=== PATIENT | male | born 1960 | race Caucasian/White ===

== ENCOUNTER 2020-01-09 10:40 | Day surgery (SDC) | payer OTHER ==
[~2020-01-09] VITALS: Ht 190.5 cm; Wt 83.9 kg
[~2020-01-09 10:40] MED LIST: AZIT250 PO; CYCL10 PO; NAPR500 PO; Naprosyn500 MG PO; Percocet 5-3251 EACH PO
== END 2020-01-09 13:50 | disposition home or self-care (01) ==
LOC: ORSCSDS 10:40
PROVIDERS: Internal Medicine Gastroenterology
PROC: 0DBN8ZX Excision of Sigmoid Colon, Via Natural or Artificial Opening Endoscopic, Diagnostic (ICD-10-PCS; principal; 2020-01-09 12:15)
PROC: 0DB68ZX Excision of Stomach, Via Natural or Artificial Opening Endoscopic, Diagnostic (ICD-10-PCS; principal; 2020-01-09 12:15)
PROC: 0DBL8ZX Excision of Transverse Colon, Via Natural or Artificial Opening Endoscopic, Diagnostic (ICD-10-PCS; principal; 2020-01-09 12:15)
DX: K74.60 Unspecified cirrhosis of liver (principal); I85.00 Esophageal varices without bleeding; K76.6 Portal hypertension; K31.89 Other diseases of stomach and duodenum; K44.9 Diaphragmatic hernia without obstruction or gangrene; K29.50 Unspecified chronic gastritis without bleeding; D12.3 Benign neoplasm of transverse colon; D12.5 Benign neoplasm of sigmoid colon; K57.30 Diverticulosis of large intestine without perforation or abscess without bleeding; K64.8 Other hemorrhoids; Z13.810 Encounter for screening for upper gastrointestinal disorder; Z12.11 Encounter for screening for malignant neoplasm of colon; J44.9 Chronic obstructive pulmonary disease, unspecified; Z87.891 Personal history of nicotine dependence
CPT/HCPCS: 88305; 88342; J2704; J7120

== ENCOUNTER 2020-06-02 09:30 | Inpatient (IN) | payer OTHER ==
[~2020-06-02] VITALS: Ht 190.5 cm; Wt 104.3 kg
[2020-06-02 10:22] LABS: BASOPHILS ABSOLUTE AUTO 0.03 K/mm3 (0.00-0.23); BASOPHILS PERCENT AUTO 0 % (0-2); EOSINOPHILS ABSOLUTE AUTO 0.09 K/mm3 (0.00-0.68); EOSINOPHILS PERCENT AUTO 1 % (0-6); Hematocrit 32.5 % (37.0-53.0); Hemoglobin 9.5 g/dL (13.5-17.5); IMMATURE GRAN ABSOLUTE AUTO 0.25 K/mm3 (0.00-0.10); IMMATURE GRAN PERCENT AUTO 2 % (0-1); LYMPHOCYTES ABSOLUTE AUTO 1.99 K/mm3 (0.84-5.20); LYMPHOCYTES PERCENT AUTO 13 % (21-46); MONOCYTES PERCENT AUTO 9 % (4-13); Mean Corpuscular HGB 29.6 pg (26.0-34.0); Mean Corpuscular HGB Conc 29.2 g/dL (31.5-36.5); Mean Corpuscular Volume 101 fL (80-100); NEUTROPHILS ABSOLUTE AUTO 11.28 K/mm3 (1.96-9.15); NEUTROPHILS PERCENT AUTO 75 % (41-73); NRBC ABSOLUTE 0.07 K/mm3 (0.00-0.02); NRBC Auto 0.5 /100 WBC (0.0-0.2); Platelet Count 109 K/mm3 (150-400); RDW Coefficient Variation 15.2 % (11.7-14.2); RDW Standard Deviation 55.8 fL (35.1-46.3); Red Blood Cell Count 3.21 M/mm3 (4.30-5.90); White Blood Cell Count 15.04 K/mm3 (4.00-11.30)
[2020-06-02 10:39] LABS: Alanine Aminotransfer (ALT/SGP 17 U/L (12-78); Albumin, Blood 2.6 g/dL (3.4-5.0); Albumin/Globulin Ratio 0.8 (0.8-1.8); Alk Phos 30 U/L (50-136); Anion Gap 4 mmol/L (6-16); Aspartate Aminotrans (AST/SGOT 21 U/L (12-37); Bilirubin, Total 0.8 mg/dL (0.1-1.0); Blood Urea Nitrogen 135 mg/dL (8-24); Bun/Creatinine Ratio 116.4 (12.0-20.0); CO2, Blood 33 mmol/L (21-32); Calcium, Blood 7.3 mg/dL (8.5-10.1); Chloride, Blood 97 mmol/L (98-108); Creatinine, Blood 1.16 mg/dL (0.60-1.20); Globulin, Blood 3.3 g/dL (2.2-4.0); Glomerular Filtration Rate >60 (60-); Glucose, Blood 137 mg/dL (70-99); Potassium, Blood 6.3 mmol/L (3.5-5.5); Sodium, Blood 134 mmol/L (136-145); Total Protein, Blood 5.9 g/dL (6.4-8.2)
[2020-06-02 11:49] LABS: International Normalized Ratio 1.53
[2020-06-02 12:02] LABS: PCO2 Arterial 99 mmHg (35-45); PO2 Arterial 219 mmHg (80-100); pH Blood Arterial 7.21 (7.35-7.45)
[2020-06-02 12:07] LABS: Hematocrit 29.1 % (37.0-53.0); Hemoglobin 8.7 g/dL (13.5-17.5)
[2020-06-02 12:37] LABS: Anion Gap 2 mmol/L (6-16); Blood Urea Nitrogen 124 mg/dL (8-24); Bun/Creatinine Ratio 112.7 (12.0-20.0); CO2, Blood 38 mmol/L (21-32); Calcium, Blood 6.8 mg/dL (8.5-10.1); Chloride, Blood 98 mmol/L (98-108); Glomerular Filtration Rate >60 (60-); Glucose, Blood 135 mg/dL (70-99); Potassium, Blood 6.2 mmol/L (3.5-5.5); Sodium, Blood 138 mmol/L (136-145)
[2020-06-02] MEDS ORDERED: ALBU90OI INH (12:58)
[2020-06-02] MEDS ORDERED: QVAR REDIHALE10.6 G2 INH (12:58)
--- NOTE | 2020-06-02 14:40 | NUR ---
ASSUMED CARE: PT RESTING IN BED ON BIPAP, SKIN CEE, DIAPHORETIC, PT DOES NOT APPEAR TO HAVE CHEST MOVEMENT WITH BREATHING AND MINIMAL BREATH SOUNDS HEARD. SATURATIONS IN LOW 90S. SHAVED MOSQUERA IN ATTEMPT FOR BETTER SEAL ON BIPAP WITH LITTLE IMPROVEMENT. DUE TO THE SWEATING, CALLED ADONIS TO DETERMINE IF TEMP RAMÍREZ CAN BE PLACED AND IF WE COULD GET A CONSULT FOR DR MAYES IN ANTICIPATION OF INTUBATION.
--- NOTE | 2020-06-02 16:00 | NUR ---
DR MAYES ARRIVED TO SEE PT AND INTUBATED AT 1508. PT BECAME AGITATED SO PROPOFOL WAS STARTED AT 50MCG/KG/MIN. TITRATED FOR EFFECT AND BLOOD PRESSURE. BLOOD PRESSURE DROPPED INTO 50S SO CENTRAL LINE WAS PLACED AT 1553. WILL RUN LEVOPHED WHEN AVAILABLE FROM PHARMACY.
[2020-06-02 16:31] LABS: Source, Urine Clean Catch
[2020-06-02 16:36] LABS: Appearance, Urine Clear (Clear); Bilirubin, Urine Neg (Neg); Blood, Urine Neg (Neg); Color, Urine Yellow (P-Yellow); Glucose Qualitative, Urine Neg (Neg); Ketones, Urine Neg (Neg); Leukocyte Esterase, Urine Neg (Neg); Nitrite, Urine Neg (Neg); Protein, Urine Neg (Neg); Specific Gravity, Urine 1.015 (1.003-1.022); Urobilinogen, Urine NORM (Normal)
--- NOTE | 2020-06-02 16:37 | NUR ---
Patient to ICU placed on ventilator and central line placed. Pt contact is stated as a spouse. called number it is patients room mate and friend. She contacted patients brother and he called. He is willing to help with decision making if needed. They are somewhat estranged. He had questions about his quality of life. His brother states that it not been good and he getis into the drugs and has many struggles. Advised him is full treatment and we are giving him a high level of care and we can see how he responds. His brother states if he declines he would appreciate help form us and the physicians aon making a decision based on his quality of life. updated nursing staff. Sent updated contact info to admitting and on chart.
[2020-06-02 16:57] LABS: Hematocrit 28.9 % (37.0-53.0); Hemoglobin 8.4 g/dL (13.5-17.5)
[2020-06-02 16:58] LABS: PCO2 Arterial 99.1 mmHg (35-45); PO2 Arterial 86.7 mmHg (80-100); pH Blood Arterial 7.18 (7.35-7.45)
[2020-06-02 17:01] LABS: U Amphetamine Screen Not Detected; U Barbituate Screen Not Detected; U Benzodiazapine Screen Not Detected; U Buprenorphine Screen Not Detected; U Cannabinoids Screen Not Detected; U Cocaine Screen Not Detected; U Methadone Screen Not Detected; U Methamphetamine Screen Not Detected; U Opiates Screen Not Detected; U Oxycodone Screen Not Detected; U Phencyclidine Screen Not Detected; U Propoxyphene Screen Not Detected
--- NOTE | 2020-06-02 18:30 | NUR ---
PT'S LEVOPHED HAS BEEN TITRATED FOR EFFECT, SEE FLOW SHEET. WITH LEVOPHED AT 15, BP WAS STILL IN 90S SYSTOLIC. VASOPRESSIN STARTED. CURRENT VENT SETTINGS AC 20/500/ 8/10 FOR SATURATIONS. TEMP RAMÍREZ IN PLACE. OG NOT PRESENT DUE TO RESISTENCE AND WITH THIS, HX OF VARICES. DR MAYES CANCELLED ORDER AT THIS TIME.
--- NOTE | 2020-06-02 19:17 | NUR ---
ASSUMED PT CARE FROM YAMIL GUEVARA PT INTUBATED AND SEDATED. VENT SETTINGS AC 20, TV 500, PEEP 8, FIO2 100% WITH OXYGEN SATURATIONS 100%. PROPOFOL AT 35MCG/KG/MIN. PROTONIX INFUSING AT 10MLS/HR. SANDOSTATIN AT 25MLS/HR. LEVOPHED AT 10MCG/MIN; TITRATED DOWN TO 8MCG/MIN. VASOPRESSIN 0.04UNITS/MIN. NS INFUSING AT 150MLS/HR. CENTRAL LINE NOTED TO RIGHT IJ. RAMÍREZ CATH IS PATENT AND DRAINING CLEAR, YELLOW URINE TO GRAVITY. AFEBRILE. VSS, SEE FLOWSEET.
--- NOTE | 2020-06-02 20:35 | NUR ---
06/02/202034 Bushra Bai PT INTIBATED, SEDATED ON VENT. NO SEDATION GIVEN FOR PROCEDURE. AWARE OF CRITICAL LAB VALUES.
--- NOTE | 2020-06-02 20:42 | NUR ---
UPPER GI SCOPE IN PROGRESS WITH DR. FREEMAN.
[2020-06-02 21:19] LABS: Hemoglobin 8.4 g/dL (13.5-17.5)
[2020-06-02 22:18] LABS: PO2 Arterial 65.3 mmHg (80-100); pH Blood Arterial 7.38 (7.35-7.45)
--- NOTE | 2020-06-02 23:14 | NUR ---
REACH ARRIVED FOR TRANSPORT
[2020-06-02 23:59] LABS: Adenovirus Not Detected (NOT DETECT); Bordetella pertussis Not Detected (NOT DETECT); Chlamydophila pneumoniae Not Detected (NOT DETECT); Coronavirus 229E Not Detected (NOT DETECT); Coronavirus HKU1 Not Detected (NOT DETECT); Coronavirus NL63 Not Detected (NOT DETECT); Coronavirus OC43 Not Detected (NOT DETECT); Human Metapneumovirus Not Detected (NOT DETECT); Human Rhinovirus/Enterovirus Not Detected (NOT DETECT); Influenza A/2009-H1 Not Detected (NOT DETECT); Influenza A/H1 Not Detected (NOT DETECT); Influenza A/H3 Not Detected (NOT DETECT); Influenza B Not Detected (NOT DETECT); Mycoplasma pneumoniae Not Detected (NOT DETECT); Parainfluenza Virus 1 Not Detected (NOT DETECT); Parainfluenza Virus 2 Not Detected (NOT DETECT); Parainfluenza Virus 3 Not Detected (NOT DETECT); Parainfluenza Virus 4 Not Detected (NOT DETECT); Respiratory Syncytial Virus Not Detected (NOT DETECT); SARS-Cov-2 (COVID-19), BioFire Not Detected (NOT DETECT)
--- NOTE | 2020-06-03 00:23 | NUR ---
[facility]SF[facility] TO [facility] CALLED REPORT TO YAMIL SYED AT 0014. REACH LEFT FACILITY WITH PT AT 0010.
--- NOTE | 2020-06-03 00:24 | NUR ---
END OF SHIFT SUMMARY PT REMAINED INTUBATED AND SEDATED. VENT SETTINGS AC 20, TV 500, PEEP 8, FIO2 60% WITH SAO2 >90%. ETT 8.0 AND 24 AT THE LIP. LUNG SOUNDS ARE COARSE T/O ALL LOBES. WEAK COUGH WITH CLEAR, THICK SPUTUM NOTED. PT NOTED TO BE IN NSR WITH HR 80'S. BP'S LABILE AND LEVOPHED TITRATED TO EFFECT (5-15MCG/MIN). WITHDRAWALS AND GRIMACES TO ANY NOXIOUS STIMULI WITH PURPOSEFUL MOVEMENT NOTED TO ETT; HOWEVER, DOES NOT FOLLOW ANY COMMANDS. PROPOFOL AT 60MCG/KG/MIN. LEVOPHED INFUSING AT 5MCG/MIN, VASOPRESSIN 0.04 UNITS/MIN, NS AT 150MLS/HR, PROTONIX GTT AT 10MLS/HR. SANDOSTATIN AT 25MLS/HR. PT RECEIVED TWO UNITS OF FFP PRIOR TO TRANSPORTING. RAMÍREZ CATHETER PATENT AND DRAINING CLEAR, YELLOW/JACKIE URINE TO GRAVITY. NO EDEMA NOTED. BOWEL TONES HYPOACTIVE. ONE BLACK TARRY, SMEAR NOTED SINCE ASSUMPTION OF CARE. AFEBRILE. VSS, SEE FLOWSHEET.
== END 2020-06-03 00:11 | disposition short-term general hospital (02) | DRG 208 ==
LOC: ER 09:30 → ICUW 11:15 → ICUE 11:15
PROVIDERS: Emergency Medicine; Internal Medicine Critical Care Medicine; Internal Medicine Gastroenterology; Nurse Practitioner Acute Care; ADMIT Internal Medicine
PROC: 0DJ08ZZ Inspection of Upper Intestinal Tract, Via Natural or Artificial Opening Endoscopic (ICD-10-PCS; principal; 2020-06-02 20:00)
PROC: 5A1935Z Respiratory Ventilation, Less than 24 Consecutive Hours (ICD-10-PCS; 2020-06-03)
PROC: 02HV33Z Insertion of Infusion Device into Superior Vena Cava, Percutaneous Approach (ICD-10-PCS; 2020-06-03)
PROC: 0BH18EZ Insertion of Endotracheal Airway into Trachea, Via Natural or Artificial Opening Endoscopic (ICD-10-PCS; 2020-06-03)
DX: J96.21 Acute and chronic respiratory failure with hypoxia (principal); R57.8 Other shock; J44.1 Chronic obstructive pulmonary disease with (acute) exacerbation; K76.6 Portal hypertension; Z20.828 Contact with and (suspected) exposure to other viral communicable diseases; D62 Acute posthemorrhagic anemia; I85.10 Secondary esophageal varices without bleeding; R65.10 Systemic inflammatory response syndrome (SIRS) of non-infectious origin without acute organ dysfunction; Z87.820 Personal history of traumatic brain injury; Z87.891 Personal history of nicotine dependence; E86.0 Dehydration; D69.6 Thrombocytopenia, unspecified; K74.60 Unspecified cirrhosis of liver; B19.20 Unspecified viral hepatitis C without hepatic coma; M17.11 Unilateral primary osteoarthritis, right knee
CPT/HCPCS: 0202U; 31500; 31720; 36415; 36430; 36556; 36600; 51702; 71045; 80048; 80053; 81003; 82550; 82803; 82947; 83605; 83735; 84132; 85014; 85018; 85025; 85610; 86850; 86900; 86901; 87040; 87070; 87077; 87185; 87186; 87205; 93005; 93010; 94002; 94640; 94660; 96361; 96365; 96366; 96367; 96375; 99291-25; C1751; C9113; G0008; J0456; J0610; J0696; J1815; J2354; J2405; J2704; J2765; J2930; J7030; J7050; J7060; P9059; Q2038

== ENCOUNTER → 2020-07-23 | Outpatient (CLI) | payer OTHER ==
[~2020-07-23] MED LIST changes: +ALBU90OI INH; +QVAR REDIHALE10.6 G2 INH
[2020-07-23 19:49] LABS: BASOPHILS ABSOLUTE AUTO 0.02 K/mm3 (0.00-0.23); BASOPHILS PERCENT AUTO 1 % (0-2); EOSINOPHILS ABSOLUTE AUTO 0.11 K/mm3 (0.00-0.68); EOSINOPHILS PERCENT AUTO 3 % (0-6); Hematocrit 32.1 % (37.0-53.0); Hemoglobin 8.8 g/dL (13.5-17.5); IMMATURE GRAN PERCENT AUTO 0 % (0-1); LYMPHOCYTES ABSOLUTE AUTO 1.22 K/mm3 (0.84-5.20); LYMPHOCYTES PERCENT AUTO 31 % (21-46); MONOCYTES ABSOLUTE AUTO 0.46 K/mm3 (0.16-1.47); MONOCYTES PERCENT AUTO 12 % (4-13); Mean Corpuscular HGB 22.1 pg (26.0-34.0); Mean Corpuscular HGB Conc 27.4 g/dL (31.5-36.5); Mean Corpuscular Volume 81 fL (80-100); NEUTROPHILS ABSOLUTE AUTO 2.16 K/mm3 (1.96-9.15); NEUTROPHILS PERCENT AUTO 54 % (41-73); Platelet Count 120 K/mm3 (150-400); RDW Coefficient Variation 18.6 % (11.7-14.2); RDW Standard Deviation 55.3 fL (35.1-46.3); Red Blood Cell Count 3.98 M/mm3 (4.30-5.90); White Blood Cell Count 3.97 K/mm3 (4.00-11.30)
[2020-07-23 20:01] LABS: Percent Saturation 3.2 % (20.0-50.0)
== END | disposition home or self-care (01) ==
LOC: LAB 17:22
PROVIDERS: Family Medicine
DX: K92.2 Gastrointestinal hemorrhage, unspecified (principal)
CPT/HCPCS: 83540; 83550; 85025

== ENCOUNTER 2021-06-20 10:01 | Observation (INO) | payer OTHER ==
[~2021-06-20] VITALS: Ht 190.5 cm; Wt 90.7 kg
[2021-06-20 11:09] LABS: BASOPHILS ABSOLUTE AUTO 0.02 K/mm3 (0.00-0.23); BASOPHILS PERCENT AUTO 0 % (0-2); EOSINOPHILS ABSOLUTE AUTO 0.15 K/mm3 (0.00-0.68); EOSINOPHILS PERCENT AUTO 3 % (0-6); Hematocrit 51.2 % (37.0-53.0); IMMATURE GRAN ABSOLUTE AUTO 0.01 K/mm3 (0.00-0.10); IMMATURE GRAN PERCENT AUTO 0 % (0-1); LYMPHOCYTES ABSOLUTE AUTO 1.11 K/mm3 (0.84-5.20); LYMPHOCYTES PERCENT AUTO 24 % (21-46); MONOCYTES ABSOLUTE AUTO 0.34 K/mm3 (0.16-1.47); MONOCYTES PERCENT AUTO 7 % (4-13); Mean Corpuscular HGB 30.7 pg (26.0-34.0); Mean Corpuscular HGB Conc 33.2 g/dL (31.5-36.5); Mean Corpuscular Volume 93 fL (80-100); Mean Platelet Volume 11.4 fL (9.1-12.4); NEUTROPHILS ABSOLUTE AUTO 3.07 K/mm3 (1.96-9.15); NEUTROPHILS PERCENT AUTO 65 % (41-73); Platelet Count 66 K/mm3 (150-400); RDW Coefficient Variation 14.1 % (11.7-14.2); RDW Standard Deviation 48.6 fL (35.1-46.3); Red Blood Cell Count 5.53 M/mm3 (4.30-5.90)
[2021-06-20 11:27] LABS: Alanine Aminotransfer (ALT/SGP 23 U/L (12-78); Albumin, Blood 3.4 g/dL (3.4-5.0); Albumin/Globulin Ratio 0.7 (0.8-1.8); Alk Phos 68 U/L (50-136); Anion Gap 3 mmol/L (6-16); Aspartate Aminotrans (AST/SGOT 25 U/L (12-37); Bilirubin, Total 1.2 mg/dL (0.1-1.0); Blood Urea Nitrogen 21 mg/dL (8-24); Bun/Creatinine Ratio 22.2 (12.0-20.0); CO2, Blood 32 mmol/L (21-32); Calcium, Blood 9.2 mg/dL (8.5-10.1); Chloride, Blood 104 mmol/L (98-108); Creatinine, Blood 0.95 mg/dL (0.60-1.20); Globulin, Blood 4.7 g/dL (2.2-4.0); Glomerular Filtration Rate >60 (60-); Glucose, Blood 114 mg/dL (70-99); Magnesium, Blood 2.2 mg/dL (1.6-2.4); Potassium, Blood 4.4 mmol/L (3.5-5.5); Sodium, Blood 139 mmol/L (136-145); Total Protein, Blood 8.1 g/dL (6.4-8.2); Troponin I <0.015 ng/mL (0.000-0.040)
[2021-06-20 12:35] LABS: U Amphetamine Screen Not Detected; U Barbituate Screen Not Detected; U Benzodiazapine Screen Not Detected; U Buprenorphine Screen Not Detected; U Cannabinoids Screen Not Detected; U Cocaine Screen Not Detected; U Methadone Screen Not Detected; U Methamphetamine Screen Not Detected; U Opiates Screen Not Detected; U Oxycodone Screen Not Detected; U Phencyclidine Screen Not Detected; U Propoxyphene Screen Not Detected
[2021-06-20 17:48] LABS: Source, Urine Clean Catch
[2021-06-20 17:58] LABS: Appearance, Urine Cloudy (Clear); Bilirubin, Urine Neg (Neg); Blood, Urine Neg (Neg); Color, Urine Amber (P-Yellow); Glucose Qualitative, Urine Neg (Neg); Ketones, Urine Neg (Neg); Leukocyte Esterase, Urine Neg (Neg); Nitrite, Urine Neg (Neg); Protein, Urine 1+ (Neg); Urobilinogen, Urine 2+ (Normal); pH, Urine 6.5 (5.0-8.0)
[2021-06-20 18:13] LABS: Red Blood Cells, Urine 0-2 /hpf (0-2); White Blood Cells, Urine 0-2 /hpf (0-5)
[2021-06-20 18:14] LABS: Bacteria Few /hpf; Mucus Light (0-Heavy); Squamous Epithelial Cells Few /hpf (Few)
--- NOTE | 2021-06-20 19:45 | NUR ---
ADMIT NOTE 61 YR OLD MALE ADMITTED TO THE FOOR FROM THE ED EARLIER ON PREVIOUS SHIFT. DX MUSCLE SPASMS AND WEAKNESS. ORIENTED TO IRAIS IGHT, NO GETTING OUT OF ED WITHOUT CALLING. O2 ER NC. CALL LIGHT IN REACH
--- NOTE | 2021-06-21 02:44 | NUR ---
DIP DYER SUMMARY ADMISSION PROCESS FINISHED WHICH WAS STARTED ON DAY SHIFT. PT ALERT AND OREINTED BUT NOTABLE TREMORS AND WEAKNESS, WITH SLOW ORAL RESPONSE. TOLERATED ENSURE (3 BOTTLES), HE IS ON FULL LIQUID DIET. RECEIVED FLU VACCINE AND IVF INFUSING. CALL LIGHT IN REACH. HAS BEEN RESTING QUIETLY WITH FEW INTERRUPTIONS SINCE.
[2021-06-21 04:52] LABS: BASOPHILS ABSOLUTE AUTO 0.02 K/mm3 (0.00-0.23); BASOPHILS PERCENT AUTO 1 % (0-2); EOSINOPHILS ABSOLUTE AUTO 0.18 K/mm3 (0.00-0.68); EOSINOPHILS PERCENT AUTO 5 % (0-6); Hematocrit 44.5 % (37.0-53.0); IMMATURE GRAN ABSOLUTE AUTO 0.01 K/mm3 (0.00-0.10); IMMATURE GRAN PERCENT AUTO 0 % (0-1); LYMPHOCYTES ABSOLUTE AUTO 1.18 K/mm3 (0.84-5.20); LYMPHOCYTES PERCENT AUTO 33 % (21-46); MONOCYTES ABSOLUTE AUTO 0.27 K/mm3 (0.16-1.47); MONOCYTES PERCENT AUTO 8 % (4-13); Mean Corpuscular HGB 31.4 pg (26.0-34.0); Mean Corpuscular HGB Conc 33.7 g/dL (31.5-36.5); Mean Corpuscular Volume 93 fL (80-100); Mean Platelet Volume 12.5 fL (9.1-12.4); NEUTROPHILS ABSOLUTE AUTO 1.92 K/mm3 (1.96-9.15); NEUTROPHILS PERCENT AUTO 54 % (41-73); Platelet Count 57 K/mm3 (150-400); Red Blood Cell Count 4.77 M/mm3 (4.30-5.90); White Blood Cell Count 3.58 K/mm3 (4.00-11.30)
[2021-06-21 05:09] LABS: Alanine Aminotransfer (ALT/SGP 21 U/L (12-78); Albumin, Blood 2.6 g/dL (3.4-5.0); Albumin/Globulin Ratio 0.6 (0.8-1.8); Alk Phos 68 U/L (50-136); Anion Gap 3 mmol/L (6-16); Aspartate Aminotrans (AST/SGOT 23 U/L (12-37); Bilirubin, Total 0.9 mg/dL (0.1-1.0); Blood Urea Nitrogen 20 mg/dL (8-24); Bun/Creatinine Ratio 25.8 (12.0-20.0); CO2, Blood 35 mmol/L (21-32); Calcium, Blood 8.8 mg/dL (8.5-10.1); Chloride, Blood 102 mmol/L (98-108); Creatinine, Blood 0.78 mg/dL (0.60-1.20); Glomerular Filtration Rate >60 (60-); Glucose, Blood 143 mg/dL (70-99); Potassium, Blood 4.3 mmol/L (3.5-5.5); Sodium, Blood 140 mmol/L (136-145); Total Protein, Blood 6.6 g/dL (6.4-8.2)
--- NOTE | 2021-06-21 17:17 | NUR ---
SHIFT SUMMARY PATIENT IS ALERT AND ORIENTED X4, PLEASANT AND COOPERATIVE WITH CARE. PATIENT IS ON O2 2LPM VIA NASAL CANNULA SATTING ABOVE 90% PATIENT'S DIET WAS UPGRADED TO MECHANICAL SOFT THIS SHIFT, AND TOLERATED WELL. PATIENT HAD AN MRI DONE THIS SHIFT. PATIENT IS WAITING TO WORK WITH SPEECH, PT/OT POSSIBLY TOMMOROW. PATIENT WILL CALL TO MAKE NEEDS KNOWN. VITAL SIGNS STABLE. NO ACUTE CHANGES THIS SHIFT. WILL CONTINUE TO CARE FOR PATIENT UNTIL SHIFT REPORT IS GIVEN TO ONCOMING NURSE.
--- NOTE | 2021-06-21 20:09 | NUR ---
IV PLACED IN RIGHT FORE ARM PREVIOUS ONE FELL OUT DUE TO SHOWER. TOLERATED WELL. CALL LIGHT IN REACH
--- NOTE | 2021-06-22 03:40 | NUR ---
awakened, call light on. stated had "a bad dream". VSS. O2 cannula placed back in nose, encouraged to take deep breaths. sats were in the mid 80's. O2 increased to 4L/min per nc. Sats increased to 89 - 90 %. Call light in reach
--- NOTE | 2021-06-22 03:42 | NUR ---
SHIFT SUMMARY PT PLACED ON MECHANICAL SOFT DIET YESTERDAY. HE HAS BEEN RESTING IN BED OVER NIGHT WITH CALL LIGHT WITHIN REACH. HE IS ON 4L OF 02 BY NASAL CANULA. HE HAS A CONSULT WITH SPEECH THERAPY AND PT/OT TODAY. VITALS WITHIN NORMAL LIMITS. WILL CONTINUE TO MONITOR.
--- NOTE | 2021-06-22 10:03 | NUR ---
SPOKE TO DR VERONICA ABOUT PT SBP BEING A LITTLE LOWER THAN BASELINE (96) AND PT BEING VERY GROGGY THIS MORNING, KLONOPIN HELD UNTIL DR CONSULTED. OK TO GIVE PER DR VERONICA, NOW PT IS WIDE AWAKE AND ALERT. PT O2 TITRATED UP LAST NIGHT DUE TO LOW SATS ON 4L VIA NC AT THE START OF THE SHIFT. SPOKE TO PT HE HAS A HOME CONCENTRATOR THROUGH [facility], [place] ON 2L VIA NC AT BASELINE. SPOKE TO DISCHARGE PLANNING PT STATED THE PORTABLE TANK IS DIFFICULT FOR HIM TO MANNAGE HE WOULD LIKE TO SEE IF HE QUALIFIES FOR A PORTABLE CONCENTRATOR. PLAN IS TO TITRATE PT DOWN TO HOME O2 RATE PT/OT/ST ORDERED PLAN FOR THEM TO SEE PT TODAY.
--- NOTE | 2021-06-22 13:07 | NUR ---
CALLED DR VERONICA- PT BP NOW WNL. PT ALERT AND ORIENTED UP IN A CHAIR O2 SATS ON 3L WERE 87% INCREASED O2 TO 4L VIA NC SATS INCREASED TO 89%. PT ON 2L O2 AT BASELINE AT HOME DR VERONICA IS AWARE.
--- NOTE | 2021-06-22 16:50 | NUR ---
SHIFT SUMMARY- PT ALERT AND ORIENTED. WORKED WITH PT/OT AND ST TODAY. ST ADVANCED PT DIET TO MECH SOFT. PT HAS REQUIRED 4L O2 VIA NC T/O THE SHIFT TODAY ALL ATTEMPTS TO TITRATE DOWN HAVE FAILED. CALLED RT AND REQUESTED A HOME O2 EVAL, PT ALREADY HAS HOME O2 AT 2L VIA NC HOWEVER NEEDS SEEM TO HAVE INCREASED. PER RT PT REQUIRES HOME O2 AT 4L VIA NC. PT HAS DISCHARGE ORDERS HOWEVER ONCE HOME O2 EVAL WAS COMPLETED UNABLE TO REACH DISCHARGE PLANNING TO DETERMINE HOW TO GET THE HOME O2 AND PORTABLE CONCENTRATOR REQUESTED. PT PLANNING TO RETURN TO [facility] WHERE HE WAS ADMITTED FROM. WILL PASS ON TO NIGHT RN IN BEDSIDE REPORT PT DC TO [place] WILL NEED TO BE DONE TOMORROW ONCE DC PLANNING IS AVAILABLE. DR VERONICA IS AWARE OF PT DC POSTPONED UNTILL TOMORROW.
--- NOTE | 2021-06-23 02:54 | NUR ---
SHIFT SUMMARY PT SPILT URINAL, CAMACHO AND SHEET CHANGE. A&O X4. MECHANICAL SOFT DIET. ON 4 L O2. PT HAS DC PAPERS AVAILABLE, WAITING FOR DC PLANNING TO BECOME INVOLVED. PT TO RETURN TO [facility] WHERE HE RESIDES. NO ACUTE CHANGES. CALL LIGHT WITHIN REACH. WILL CONTINUE TO MONITOR.
[2021-06-23] MEDS ORDERED: CONSTULOSE10 GM/15 M PO (08:00)
[2021-06-23] MEDS ORDERED: ALDACTONE100 MG PO (10:07)
[2021-06-23] MEDS ORDERED: FURO80 PO (10:07)
[2021-06-23] MEDS ORDERED: FERSU300 PO (10:08)
[2021-06-23] MEDS ORDERED: ANORO ELLIPTA1 EACH INH (10:08)
[2021-06-23] MEDS ORDERED: OMEP20ER PO (10:08)
[2021-06-23] MEDS ORDERED: CLON.5 PO (12:00)
[2021-06-23] MEDS ORDERED: ALBU90OI6 INH (12:01)
[2021-06-23] MEDS ORDERED: QVAR REDIHALE10.6 G2 INH (12:01)
--- NOTE | 2021-06-23 16:25 | NUR ---
DISCHARGE SUMMARY PT DISCHARGED TO HOME. PT LEFT ROOM VIA WHEELCHAIR AND TRANSPORTER ESCORT PRIOR TO THIS NOTE. PT EDUCATED ON MEDICATIONS, OXYGEN USE AND ADVISED NOT TO SMOKE. PT AGREES TO HAVE SOFTWARE TEST AND VALIDATION ENGINEER SCHEDULE APPOINTMENTS FOR FOLLOW UP WITH NEUROLOGY AND PCP. THIS NURSE ATTEMPTED TO SCHEDULE THOSE APPOINTMENTS BUT NEUROLOGY WOULD NOT ACCEPT REFERRAL WITHOUT FIRST RECEIVING REFERRAL. PCP OFFICE DISASTER RESPONSE DIRECTOR AWAY FROM HER DESK AT THE TIME THIS NURSE CALLED. MED REC COMPLETED THIS MORNING AND DR. VERONICA NOTIFED, DISCHARGE MEDICATION REC REVISED. NARCISO DROPPED OFF O2 TANK IN ROOM AT 1345. NO IV IN PLACE AT TIME OF DC. ALL BELONGINGS RETURNED.
== END 2021-06-23 16:06 | disposition home health service (06) ==
LOC: ER 10:01 → ERHOLD 10:02 → MEDS 18:21 → ENPENDDIS 06-22 15:24 → MEDS 06-23 16:06
PROVIDERS: Emergency Medicine; Physician Assistant; ADMIT Internal Medicine
DX: G25.2 Other specified forms of tremor (principal); D69.6 Thrombocytopenia, unspecified; J44.9 Chronic obstructive pulmonary disease, unspecified; F17.210 Nicotine dependence, cigarettes, uncomplicated; K70.30 Alcoholic cirrhosis of liver without ascites; R47.9 Unspecified speech disturbances; G25.3 Myoclonus; J96.11 Chronic respiratory failure with hypoxia; Z99.81 Dependence on supplemental oxygen; Z87.820 Personal history of traumatic brain injury
CPT/HCPCS: 36415; 70450; 70553; 71046; 80053; 81001; 83735; 84484; 85025; 90686; 92507; 92523; 92610; 93005; 93010; 94760; 94761; 96372; 96374; 97116; 97161; 97166; 97530; 97535; 99285-25; A9270; A9579; G0008; G0378; J1650; J2405; J7030

== ENCOUNTER 2021-07-26 08:30 | Inpatient (IN) | payer OTHER ==
[~2021-07-26] VITALS: Ht 185.4 cm; Wt 98.1 kg
[~2021-07-26 08:30] MED LIST changes: +ALBU90OI6 INH; +ALDACTONE100 MG PO; +ANORO ELLIPTA1 EACH INH; +CLON.5 PO; +CONSTULOSE10 GM/15 M PO; +FERSU300 PO; +FURO80 PO; +OMEP20ER PO
[2021-07-26 09:09] LABS: PCO2 Arterial 83.9 mmHg (35-45); PO2 Arterial 50.6 mmHg (80-100); pH Blood Arterial 7.31 (7.35-7.45)
[2021-07-26 09:28] LABS: BASOPHILS ABSOLUTE AUTO 0.03 K/mm3 (0.00-0.23); BASOPHILS PERCENT AUTO 1 % (0-2); EOSINOPHILS ABSOLUTE AUTO 0.06 K/mm3 (0.00-0.68); EOSINOPHILS PERCENT AUTO 1 % (0-6); Hematocrit 45.4 % (37.0-53.0); IMMATURE GRAN ABSOLUTE AUTO 0.02 K/mm3 (0.00-0.10); IMMATURE GRAN PERCENT AUTO 0 % (0-1); LYMPHOCYTES ABSOLUTE AUTO 0.94 K/mm3 (0.84-5.20); LYMPHOCYTES PERCENT AUTO 15 % (21-46); MONOCYTES PERCENT AUTO 11 % (4-13); Mean Corpuscular HGB 28.1 pg (26.0-34.0); Mean Corpuscular HGB Conc 30.8 g/dL (31.5-36.5); Mean Corpuscular Volume 91 fL (80-100); NEUTROPHILS ABSOLUTE AUTO 4.75 K/mm3 (1.96-9.15); NEUTROPHILS PERCENT AUTO 73 % (41-73); NRBC ABSOLUTE 0.02 K/mm3 (0.00-0.02); NRBC Auto 0.3 /100 WBC (0.0-0.2); Platelet Count 75 K/mm3 (150-400); RDW Coefficient Variation 17.1 % (11.7-14.2); RDW Standard Deviation 57.1 fL (35.1-46.3); Red Blood Cell Count 4.98 M/mm3 (4.30-5.90)
[2021-07-26 09:51] LABS: Influenza A, PCR NEGATIVE (NEGATIVE); Influenza B, PCR NEGATIVE (NEGATIVE); Resp Syncytial Virus, PCR NEGATIVE (NEGATIVE); SARS-Cov-2 (COVID-19) PCR, MMC NEGATIVE (NEGATIVE)
[2021-07-26 10:56] LABS: Alanine Aminotransfer (ALT/SGP 20 U/L (12-78); Albumin, Blood 3.1 g/dL (3.4-5.0); Albumin/Globulin Ratio 0.8 (0.8-1.8); Alk Phos 51 U/L (50-136); Anion Gap 4 mmol/L (6-16); Aspartate Aminotrans (AST/SGOT 28 U/L (12-37); Bilirubin, Total 1.5 mg/dL (0.1-1.0); Blood Urea Nitrogen 47 mg/dL (8-24); Bun/Creatinine Ratio 46.1 (12.0-20.0); CO2, Blood 40 mmol/L (21-32); Calcium, Blood 8.2 mg/dL (8.5-10.1); Chloride, Blood 94 mmol/L (98-108); Creatinine, Blood 1.02 mg/dL (0.60-1.20); Globulin, Blood 3.8 g/dL (2.2-4.0); Glomerular Filtration Rate >60 (60-); Glucose, Blood 103 mg/dL (70-99); Potassium, Blood 5.3 mmol/L (3.5-5.5); Sodium, Blood 138 mmol/L (136-145); Total Protein, Blood 6.9 g/dL (6.4-8.2); Troponin I 0.173 ng/mL (0.000-0.040)
[2021-07-26 15:01] LABS: Source, Urine Catheter
[2021-07-26 15:09] LABS: Appearance, Urine Hazy (Clear); Bilirubin, Urine Neg (Neg); Blood, Urine 1+ (Neg); Color, Urine Amber (P-Yellow); Glucose Qualitative, Urine Neg (Neg); Ketones, Urine Neg (Neg); Leukocyte Esterase, Urine 1+ (Neg); Nitrite, Urine Neg (Neg); Protein, Urine 3+ (Neg); Urobilinogen, Urine 2+ (Normal)
[2021-07-26 15:19] LABS: Amorphous Light (0-Heavy); Bacteria Mod /hpf; Squamous Epithelial Cells Few /hpf (Few)
[2021-07-26 18:01] LABS: PCO2 Arterial 72.3 mmHg (35-45); PO2 Arterial 246 mmHg (80-100); pH Blood Arterial 7.33 (7.35-7.45)
[2021-07-26 18:02] LABS: Alanine Aminotransfer (ALT/SGP 20 U/L (12-78); Albumin, Blood 3.2 g/dL (3.4-5.0); Albumin/Globulin Ratio 0.7 (0.8-1.8); Alk Phos 62 U/L (50-136); Anion Gap 5 mmol/L (6-16); Aspartate Aminotrans (AST/SGOT 25 U/L (12-37); Bilirubin, Total 1.8 mg/dL (0.1-1.0); Blood Urea Nitrogen 47 mg/dL (8-24); CO2, Blood 36 mmol/L (21-32); Calcium, Blood 8.1 mg/dL (8.5-10.1); Chloride, Blood 96 mmol/L (98-108); Globulin, Blood 4.6 g/dL (2.2-4.0); Glomerular Filtration Rate >60 (60-); Glucose, Blood 148 mg/dL (70-99); Potassium, Blood 5.1 mmol/L (3.5-5.5); Sodium, Blood 137 mmol/L (136-145); Total Protein, Blood 7.8 g/dL (6.4-8.2); Troponin I 0.156 ng/mL (0.000-0.040)
--- NOTE | 2021-07-26 19:00 | NUR ---
ICU TRANSFER / SHIFT SUMMARY: PT ARRIVED TO ICU-05 AT APPROX 1740 S/P RESPIRATORY ARREST & CODE BLUE. RT BAGGING PT, 8.0 ETT NOTED TO BE 24.0 CM ATT. DURING CODE, ROCURONIUM & ETOMIDATE GIVEN, PROPOFOL CURRENTLY INFUSING. PT TRANSFERRED TO [facility] W/ SETTINGS: AC/VC 16/450/5/100% W/ O2 SATS > 92%. LS TIGHT T/O, WHEEZING NOTED TO LLL. MONITOR SHOWS SR-ST W/ HR 80-110s. PT HYPOTENSIVE, SEDATION TITRATED DOWN & 1L NS BOLUS STARTED PER DR MAYES. THE PT HAS RESPONDED WELL TO THIS FLUID BOLUS W/ IMPROVED BP - SEE VS. OGT PLACED & PLACEMENT VERIFIED W/ CXR. TEMP RAMÍREZ PATENT/ DRAINING DARK YELLOW URINE, UTOX ADDED TO URINE IN LAB FROM ADMIT. PT AFEBRILE AT THIS TIME. SKIN CONDIITON OVERALL INTACT. CRITICAL CO2 LEVEL NOTED ON ABG, REPORTED TO DR MAYES. WILL CONTINUE TO MONITOR & REPORT OFF TO ONCOMING RN.
[2021-07-26 19:24] LABS: U Amphetamine Screen Not Detected; U Barbituate Screen Not Detected; U Benzodiazapine Screen Not Detected; U Buprenorphine Screen Not Detected; U Cannabinoids Screen Not Detected; U Cocaine Screen Not Detected; U Methadone Screen Not Detected; U Methamphetamine Screen Not Detected; U Opiates Screen Not Detected; U Oxycodone Screen Not Detected; U Phencyclidine Screen Not Detected; U Propoxyphene Screen Not Detected
--- NOTE | 2021-07-26 19:33 | NUR ---
Assumed care. Report received from greg LOBO. Pt in bed, sedated and ventilated via ETT. Vent settings: 16/450/5/60%. OG tube in place, clamped. Pt has IV access in r/AC and R/hand. Propofol running at 30 mcg/kg/min. SWB restraints in place. Temp Marquez in place. No acute needs noted at this time, will continue to monitor.
--- NOTE | 2021-07-26 21:11 | NUR ---
CT NOTE. CT ORDER ACKNOWLEDGED, DISCUSSED PREVIOUS CONTRAST CT WITH DR. MAYES AND RADIOLOGY RECOMMENDATON TO WAIT [address] SPOKE WITH RT WELL, PLAN IS TO TAKE PATIENT LATER IN SHIFT ONCE RT IS AVAILABLE. DR. MAYES AGREED WITH PLAN.
[2021-07-27 04:25] LABS: Hemoglobin 14.8 g/dL (13.5-17.5); Mean Corpuscular HGB 28.5 pg (26.0-34.0); Mean Corpuscular HGB Conc 31.5 g/dL (31.5-36.5); Mean Corpuscular Volume 90 fL (80-100); NRBC ABSOLUTE 0.03 K/mm3 (0.00-0.02); NRBC Auto 0.3 /100 WBC (0.0-0.2); Platelet Count 60 K/mm3 (150-400); RDW Coefficient Variation 16.3 % (11.7-14.2); RDW Standard Deviation 54.2 fL (35.1-46.3); White Blood Cell Count 10.38 K/mm3 (4.00-11.30)
[2021-07-27 04:28] LABS: Base Excess Venous 13.2 mmol/L; Bicarbonate Venous 34.4 mmol/L (24.0-30.0); PCO2 Venous 58.9 mmHg (38-42); PO2 Venous 89.2 mmHg (38-42); pH Blood Venous 7.42 (7.34-7.37)
[2021-07-27 04:39] LABS: International Normalized Ratio 1.5; Prothrombin Time Results 15.3 Sec (9.7-11.5)
[2021-07-27 04:45] LABS: Alanine Aminotransfer (ALT/SGP 18 U/L (12-78); Albumin, Blood 2.5 g/dL (3.4-5.0); Albumin/Globulin Ratio 0.6 (0.8-1.8); Alk Phos 43 U/L (50-136); Anion Gap 4 mmol/L (6-16); Aspartate Aminotrans (AST/SGOT 18 U/L (12-37); Bilirubin, Total 1.4 mg/dL (0.1-1.0); Blood Urea Nitrogen 34 mg/dL (8-24); Bun/Creatinine Ratio 43.8 (12.0-20.0); CO2, Blood 36 mmol/L (21-32); Calcium, Blood 7.9 mg/dL (8.5-10.1); Chloride, Blood 99 mmol/L (98-108); Creatinine, Blood 0.78 mg/dL (0.60-1.20); Globulin, Blood 3.9 g/dL (2.2-4.0); Glomerular Filtration Rate >60 (60-); Glucose, Blood 194 mg/dL (70-99); Magnesium, Blood 2.2 mg/dL (1.6-2.4); Phosphorus, Blood 2.4 mg/dL (2.5-4.9); Potassium, Blood 4.5 mmol/L (3.5-5.5); Sodium, Blood 139 mmol/L (136-145); Total Protein, Blood 6.4 g/dL (6.4-8.2); Troponin I 0.104 ng/mL (0.000-0.040)
[2021-07-27 05:47] LABS: BAND PERCENT MAN 12 % (0-8); BASOPHILS PERCENT MAN 0 % (0-2); EOSINOPHILS PERCENT MAN 0 % (0-6); LYMPHOCYTES PERCENT MAN 2 % (21-46); MONOCYTES PERCENT MAN 2 % (4-13); NEUTROPHILS ABSOLUTE MAN 9.96 K/mm3 (1.96-9.15); SEG NEUTROPHILS PERCENT MAN 84 % (41-73); TOTAL CELLS COUNTED 100
--- NOTE | 2021-07-27 07:12 | NUR ---
Shift summary. Pt continues in bed, sedated and ventilated. Vent settings: AC/VC 16/450/5/50%. OG tube in place, clamped. L/central line IJ placed during shift. IV pump settings: Propofol 40 mcg/kg/min, Levophed 10 mcg/min, NS 75 ml/hr. IV access in R/ac and R/hand, WNL. Marquez catheter in place, 1250 out this shift. See shift assessment for further details. Brother spoken to during shift, updated on pt condition, said he will call periodically for updates. Report given to greg LOBO.
--- NOTE | 2021-07-27 08:10 | NUR ---
ASSUMED CARE: REPORT RECEIVED FROM EYAD Castro & JACEK Santiago, RNs. ASSUMED CARE OF THIS PT AT APPROX 0700. ON ASSESSMENT, THE PT IS SEDATED W/ PROPOFOL & INTUBATED W/ 8.0 ETT, NOTED TO BE 24.0 CM ATT. EYES NOT OPEN SPONTANEOUSLY, THE PT WITHDRAWS & GRIMACES TO PAINFUL STIMULI. LS DIM IN BASES, VENT SETTINGS: AC/VC 16/450/5/45% W/ O2 SATS > 90% ON AVG. MONITOR SHOWS SR W/ HR 80s, LEVOPHED INFUSING AT 10 MCG/MIN FOR HYPOTENSION. OGT IN PLACE, CLAMPED. TEMP RAMÍREZ PATENT/ DRAINING YELLOW URINE. SKIN CONDITION OVERALL INTACT, Q2H REPOSITIONING TO MAINTAIN SKIN INTEGRITY. WILL CONTINUE TO MONITOR & UPDATE NEEDED.
--- NOTE | 2021-07-27 08:30 | NUR ---
DR MAYES: PROVIDER AT BEDSIDE THIS AM TO EVAL PT. THIS RN HAS NOTIFIED PROVIDER OF PT's DECREASED PLT COUNT TO 60 THIS AM R/T ORDERED AM LOVENOX INJECTION, PROVIDER STS TO HOLD DOSE THIS AM. NUTRITION NEEDS FOR THIS PT HAVE ALSO BEEN DISCUSSED & METALLURGICAL ENGINEERING TECHNICIAN CONSULTATION HAS BEEN ORDERED. ECHO SCHEDULED FOR THIS AM. NO OTHER CHANGES AT THIS TIME.
--- NOTE | 2021-07-27 15:45 | NUR ---
TUBE FEEDING: PER DIETARY ORDERS, TUBE FEEDING OF VITAL HP INITIATED AT 25 ML/HR THROUGH OGT. KANGAROO PUMP IS SET TO ALARM IN 4 HRS WHEN TUBE FEEDING RATE CAN BE INCREASED. GOAL IS 60 ML/HR. 30 ML H2O FLUSH Q4H.
--- NOTE | 2021-07-27 18:30 | NUR ---
SHIFT SUMMARY: NO ACUTE CHANGES SINCE PRIOR UPDATES. PT REMAINS SEDATED W/ PROPOFOL & INTUBATED. HE CONTINUES TO WITHDRAW EXTREMITIES FROM PAINFUL STIMULUS & GRIMACES. LS ARE DIM IN BASES, VENT SETTINGS: AC/VC 16/450/5/45% W/ O2 SATS > 90% ON AVG. MONITOR SHOWS SR W/ HR 70s, LEVOPHED INFUSING AT 4 MCG/MIN FOR HYPOTENSION. OGT IN PLACE W/ TUBE FEEDS INFUSING AT 25 ML/HR, KANGAROO PUMP WILL ALARM WHEN OKAY TO ADVANCE RATE. RAMÍREZ PATENT/ DRAINING DARK YELLOW URINE. SKIN CONDITION OVERALL INTACT, Q2H REPOSITIONING TO MAINTAIN SKIN INTEGRITY. WILL CONTINUE TO MONITOR & REPORT OFF TO ONCOMING RN.
--- NOTE | 2021-07-27 19:10 | NUR ---
Assumed care. Report received from greg LOBO. Pt in bed, sedated and ventilated via ETT. Vent settings: AC/VC 16/450/5/45%. OG tube in place, tube feed running Vital High Protein at 25 ml/hr. L/central line IJ in place. IV pump settings: Propofol 45 mcg/kg/min, Levophed 4 mcg/min, NS 75 ml/hr. Pt also has IV access in L/AC and L/hand. SWB restraints in place, Marquez catheter in place. SCDs in place. No acute needs noted at this time, will continue to monitor.
[2021-07-28 03:27] LABS: PO2 Venous 79.8 mmHg (38-42); pH Blood Venous 7.38 (7.34-7.37)
[2021-07-28 04:01] LABS: Magnesium, Blood 2.6 mg/dL (1.6-2.4)
[2021-07-28 04:02] LABS: Anion Gap 4 mmol/L (6-16); Blood Urea Nitrogen 29 mg/dL (8-24); Bun/Creatinine Ratio 42.8 (12.0-20.0); CO2, Blood 36 mmol/L (21-32); Calcium, Blood 7.5 mg/dL (8.5-10.1); Chloride, Blood 101 mmol/L (98-108); Creatinine, Blood 0.68 mg/dL (0.60-1.20); Glomerular Filtration Rate >60 (60-); Glucose, Blood 175 mg/dL (70-99); Phosphorus, Blood 2.4 mg/dL (2.5-4.9); Potassium, Blood 4.1 mmol/L (3.5-5.5); Sodium, Blood 141 mmol/L (136-145)
--- NOTE | 2021-07-28 05:02 | NUR ---
Pt update. Propofol put on standby at 0330, RT present for breathing trial. Pt came out of sedation, able to open eyes and follow commands. Pt attempting to speak around breathing tube. Vent setting: SPONT 10/, 55% Fi02. Pt tolerating well. Pt asking for water, mouth swabs used to provide relief. Pt indicated that he was in pain, 25 mcg Fentanyl IV given. As of this time, pt is resting in bed, propofol still on standby, vent setting unchanged.
--- NOTE | 2021-07-28 06:09 | NUR ---
Shift summary. Pt continues in bed, sedated and ventilated via ETT. Vent settings: Spontaneous, 12/6, 60% Fi02. R/IJ central line in place, IV pump settings: Propofol 20 mcg/kg/min, Levophed 4 mcg/min, NS 75 ml/hr. Pt has IV access in R/AC and R/hand. OG tube in place, tube feed running at 45 ml/hr, goal rate 60 ml/hr. SWB restraints in place. Marquez catheter in place. SCDs in place. Pt is arouseable, oriented to self and following directions. See shift assessment for further details. Will continue to monitor and report off to dayshift RN.
[2021-07-28 07:51] LABS: BASOPHILS ABSOLUTE AUTO 0.01 K/mm3 (0.00-0.23); BASOPHILS PERCENT AUTO 0 % (0-2); EOSINOPHILS PERCENT AUTO 0 % (0-6); Hemoglobin 14.6 g/dL (13.5-17.5); IMMATURE GRAN ABSOLUTE AUTO 0.04 K/mm3 (0.00-0.10); IMMATURE GRAN PERCENT AUTO 0 % (0-1); LYMPHOCYTES ABSOLUTE AUTO 0.27 K/mm3 (0.84-5.20); LYMPHOCYTES PERCENT AUTO 3 % (21-46); MONOCYTES PERCENT AUTO 5 % (4-13); Mean Corpuscular HGB 28.1 pg (26.0-34.0); Mean Corpuscular HGB Conc 31.1 g/dL (31.5-36.5); Mean Corpuscular Volume 91 fL (80-100); NEUTROPHILS ABSOLUTE AUTO 8.68 K/mm3 (1.96-9.15); NEUTROPHILS PERCENT AUTO 91 % (41-73); Platelet Count 57 K/mm3 (150-400); RDW Coefficient Variation 15.9 % (11.7-14.2); RDW Standard Deviation 52.8 fL (35.1-46.3); Red Blood Cell Count 5.19 M/mm3 (4.30-5.90)
--- NOTE | 2021-07-28 10:44 | NUR ---
PT WAS EXTUBATED AT 1025. ON 11L HFNC. PT IS NOT IS RESP DISTRESS. SP02 89-91%. NO COUGHING OR CHOKING. NO SIGN OF DISTRESS.
--- NOTE | 2021-07-28 18:11 | NUR ---
SUMMARY PT WAS EXTUBATED THIS AM. DOING WELL. A/O X4. ON NOW 8L HFNC. PT PASSED BEDSIDE SWALLOW EVAL AND WAS ADVANCED TO FULL LIQUID DIET. PT DOES WELL. WILL DESAT A LITTLE BUT IS NOT IN ANY DISTRESS. PT STATES THAT IS HIS NORM, HE WEARS 4L O2 AT HOME. PT C/O FULL FEELING IN BELLY. DR. BLACKBURN LOOKED AT IT WITH ULTRASOUND AND PT DOES HAVE ASCITES BUT NOT ENOUGH TO DRAIN AT THIS POINT. LASIX ORDERED. PT GOT UP TO CHAIR WITH OT TODAY AND SAT UP FOR A FEW HOURS THEN BACK TO BED. WAS TITRATED OFF LEVOPHED AFTER PROPOFOL STOPPED AND VITALS HAVE BEEN STABLE ALL DAY. PT IS ABLE TO USE CALL LIGHT, USES TV, AND ABLE TO SIT SELF UP IN BED. NO SIGN OF DISTRESS.
--- NOTE | 2021-07-28 19:35 | NUR ---
Assumed care. Report received from greg LOBO. Pt alert and oriented, resting in bed at this time. On high flow NC at 8 L/min 02. Pt has L/IJ central line in place. IV access in R/AC and R/hand. Stable vital signs, no acute needs at this time. Will continue to monitor.
--- NOTE | 2021-07-29 00:50 | NUR ---
Pt up to bedside commode at approximately 0005 and given call light. About 20 min later, pt used call light, found pt on commode with bleeding right hand and IV catheter/extension set on floor. Pt stated he had accidentally pulled it out while trying to clean himself on the commode. Cleaned and bandaged insertion site on back of R/hand, swelling noted at site.
--- NOTE | 2021-07-29 06:36 | NUR ---
Shift summary. Pt rested in bed throughout shift. On high flow 02 via NC, 11 L/min currently. 02 demands increase with speaking or patient movement. L/IJ central line in place, WNL, dressing changed this shift. IV access in R/AC, WNL. Marquez catheter in place, 700 out this shift. Pt c/o increased pain in abdomen, pt localizes pain on right side of abdomen/flank. PRN pain medication given. Pt is concerned about home living situation and ability to complete ADLs upon his return home. Will report pt concerns to dayshift RN for social service technician consult. See shift assessment for further details. Will continue to monitor and report off to dayshift RN.
[2021-07-29 06:46] LABS: Hematocrit 49.7 % (37.0-53.0); Mean Corpuscular HGB 27.8 pg (26.0-34.0); Mean Corpuscular HGB Conc 30.2 g/dL (31.5-36.5); Mean Corpuscular Volume 92 fL (80-100); NRBC ABSOLUTE 0.02 K/mm3 (0.00-0.02); NRBC Auto 0.3 /100 WBC (0.0-0.2); RDW Coefficient Variation 15.7 % (11.7-14.2); RDW Standard Deviation 53.1 fL (35.1-46.3); White Blood Cell Count 7.37 K/mm3 (4.00-11.30)
[2021-07-29 07:16] LABS: Platelet Count 44 K/mm3 (150-400)
[2021-07-29 07:44] LABS: Alanine Aminotransfer (ALT/SGP 22 U/L (12-78); Albumin, Blood 2.3 g/dL (3.4-5.0); Albumin/Globulin Ratio 0.5 (0.8-1.8); Alk Phos 46 U/L (50-136); Anion Gap 3 mmol/L (6-16); Aspartate Aminotrans (AST/SGOT 9 U/L (12-37); Bilirubin, Total 0.9 mg/dL (0.1-1.0); Blood Urea Nitrogen 40 mg/dL (8-24); Bun/Creatinine Ratio 52.3 (12.0-20.0); CO2, Blood 35 mmol/L (21-32); Calcium, Blood 8.3 mg/dL (8.5-10.1); Chloride, Blood 99 mmol/L (98-108); Creatinine, Blood 0.77 mg/dL (0.60-1.20); Globulin, Blood 4.3 g/dL (2.2-4.0); Glomerular Filtration Rate >60 (60-); Glucose, Blood 148 mg/dL (70-99); Magnesium, Blood 2.5 mg/dL (1.6-2.4); Phosphorus, Blood 3.8 mg/dL (2.5-4.9); Potassium, Blood 5.2 mmol/L (3.5-5.5); Sodium, Blood 137 mmol/L (136-145); Total Protein, Blood 6.6 g/dL (6.4-8.2)
--- NOTE | 2021-07-29 09:48 | NUR ---
ASSUMED CARE REPORT FROM CRISTIAN/JACEK RN AT 0700. PT RESTING IN BED. A&OX3. FOLLOWS SIMPLE COMMANDS. C/O RIGHT SIDED ABD PAIN, 9/10 AFTER FENTANYL DOSE, STATES IMPROVED. DR VERONICA AWARE. GARBLED SPEECH. 15L O2 VIA HFNC. LUNGS DIM IN BASES. TOLERATED FULL LIQUID BREAKFAST WELL. NO SIGNS OF ASPIRATION NOTED. SR ON MONITOR, RATE 90'S. BP STABLE. ABD ROUND, SOFT, NON TENDER. BT X 4. PT C/O PAIN TO RIGHT SIDE. RAMÍREZ PATENT, DRAINING CLEAR YELLOW URINE TO GRAVITY. MAEW. PT DOES DESAT c EXERTION. LOVENOX HELD D/T PLATELETS. WILL TREND PER DR VERONICA. CVC TO [facility], DRESSING C/D/I. WILL CONTINUE TO MONITOR.
--- NOTE | 2021-07-29 12:51 | NUR ---
ABD UPDATE PT CONTINUED TO C/O ABD PAIN. FENTANYL IMPROVED ONLY FOR SHORT PERIODS OF TIME. DR VERONICA UPDATED. CT ABD AND U/S ORDERED AND COMPLETED. DIET CHANGED TO NPO. SURGICAL CONSULT CALLED D/T PERF BOWEL ON CT. IVF STARTED ORDERED. BP STABLE. WILL CONTINUE TO MONITOR.
--- NOTE | 2021-07-29 13:27 | NUR ---
DR DEGROOT AND DR BLACKBURN AT BEDSIDE TO DISCUSS CT RESULTS. PT VERBALIZED UNDERSTANDING OF TREATMENT OPTIONS. STATES HE KNOWS THAT HE WILL WITHOUT SURGERY. STATES HE DOES NOT WANT TO BE INTUBATED AGAIN AND WANTS TO BE MADE COMFORTABLE. ASKED MULTIPLE TIMES TO ENSURE THAT PT UNDERSTANDS THAT WITHOUT SURGERY THAT HE WILL . VERBALIZED UNDERSTANDING. PALLIATIVE CARE NOTIFED. COMFORT CARE ORDERS ENTERED. DR DEGROOT CALLED BROTHER TO UPDATE. PT ONLY REQUESTS THAT HIS NEW COMPUTER GET SENT TO BROTHER. WATER GIVEN PER PT REQUEST. MEDICATED c FENTANYL ORDERED. PT APPEARS TO BE SLEEPING. RR 7-8. O2 REMOVED. WILL CONTINUE TO MONITOR FOR PAIN AND DISCOMFORT.
--- NOTE | 2021-07-29 13:48 | NUR ---
Received request for Palliative Care consult from pt's bedside RN Rhoda, as pt has elected comfort care vs surgical intervention for perforated bowel. Pt was alert and oriented when he made the decision to decline surgical intervention. Dr. Spann reached out to pt's brother to inform him of pt's decision as well, and his brother states he respects pt's decision. Pt was asked several different times and ways if he understands that he will without treatment, and pt is adamant that he does understand, and does not want treatment. He tells RhodaRN he wants his computer to be sent to his brother when he passes. Pt given prescribed dose of pain medication as he requested, and quickly became agonal, non-responsive. Nurse Marques called this RN to the bedside. Pt does appear to be actively dying, no s/s of pain or agitation noted. I will remain available.
--- NOTE | 2021-07-29 17:39 | NUR ---
SHIFT SUMMARY PT STATUS CHANGED TO COMFORT CARE. MEDICATED FOR PAIN ORDERED. PT ON RA, DOES NOT APPEAR AIR HUNGRY. WILL CONTINUE TO MONITOR FOR PAIN AND COMFORT UNTIL REPORT TO ONCOMING NURSE.
--- NOTE | 2021-07-29 18:43 | NUR ---
TOD 1819. [facility] CALLED FOR ARRANGEMENTS. ANCELMO LOBO NOTIFIED BROTHER, SHADY. ALL BELONGINGS TO BE SENT c HOME SINCE PT HAS NO FAMILY IN THE AREA.
--- NOTE | 2021-07-30 09:56 | NUR ---
Prior to pt's passing, he requested his laptop go to his brother. I did receive permission to have the laptop shipped to his brother's address. Will follow up with Ally, pt advocate on this.
== END 2021-07-29 18:20 | DRG 208 ==
LOC: ER 08:30 → ERHOLD 12:14 → ICUE 12:14 → PCU 14:10 → ICUE 17:30
PROVIDERS: Emergency Medicine; Family Medicine; Internal Medicine Critical Care Medicine; ADMIT Internal Medicine
PROC: 5A1945Z Respiratory Ventilation, 24-96 Consecutive Hours (ICD-10-PCS; principal; 2021-07-26)
PROC: 3E043XZ Introduction of Vasopressor into Central Vein, Percutaneous Approach (ICD-10-PCS; 2021-07-26)
PROC: 0BH18EZ Insertion of Endotracheal Airway into Trachea, Via Natural or Artificial Opening Endoscopic (ICD-10-PCS; 2021-07-26)
PROC: 02HV33Z Insertion of Infusion Device into Superior Vena Cava, Percutaneous Approach (ICD-10-PCS; 2021-07-26)
PROC: 0DH67UZ Insertion of Feeding Device into Stomach, Via Natural or Artificial Opening (ICD-10-PCS; 2021-07-26)
PROC: 5A09357 Assistance with Respiratory Ventilation, Less than 24 Consecutive Hours, Continuous Positive Airway Pressure (ICD-10-PCS; 2021-07-26)
PROC: 5A0945A Assistance with Respiratory Ventilation, 24-96 Consecutive Hours, High Flow/Velocity Cannula (ICD-10-PCS; 2021-07-28)
DX: J18.9 Pneumonia, unspecified organism (principal); J96.22 Acute and chronic respiratory failure with hypercapnia; J96.21 Acute and chronic respiratory failure with hypoxia; G93.41 Metabolic encephalopathy; K63.1 Perforation of intestine (nontraumatic); I24.8 Other forms of acute ischemic heart disease; J44.0 Chronic obstructive pulmonary disease with (acute) lower respiratory infection; J44.1 Chronic obstructive pulmonary disease with (acute) exacerbation; G93.1 Anoxic brain damage, not elsewhere classified; R18.8 Other ascites; Z66 Do not resuscitate; Z51.5 Encounter for palliative care; B19.20 Unspecified viral hepatitis C without hepatic coma; Z20.822 Contact with and (suspected) exposure to COVID-19; M19.90 Unspecified osteoarthritis, unspecified site; K66.8 Other specified disorders of peritoneum; K72.90 Hepatic failure, unspecified without coma; R09.2 Respiratory arrest; F10.20 Alcohol dependence, uncomplicated; K70.30 Alcoholic cirrhosis of liver without ascites; D69.6 Thrombocytopenia, unspecified; Z99.81 Dependence on supplemental oxygen; Z98.890 Other specified postprocedural states; Z87.891 Personal history of nicotine dependence; Z87.820 Personal history of traumatic brain injury; Z79.899 Other long term (current) drug therapy; Z78.1 Physical restraint status
CPT/HCPCS: 0241U; 31500; 36415; 36556; 36600; 51798; 70450; 71045; 74176; 74177; 76705; 80048; 80053; 81001; 82140; 82803; 82947; 83605; 83735; 83880; 84100; 84484; 85025; 85027; 85610; 87040; 87070; 87086; 87205; 93005; 93010; 93306; 94002; 94003; 94640; 94660; 97166; 97530; 99285-25; A9270; C1751; C9113; J0330; J0456; J0696; J1940; J2060; J2270; J2704; J2930; J3010; J7030; J7050; J7060; Q9967